=== PATIENT | female | born 1965 | race Caucasian/White ===

== ENCOUNTER 2016-07-15 02:27 | Emergency (ER) | payer MEDICARE ==
[~2016-07-15] VITALS: Ht 152.4 cm; Wt 40.8 kg
[2016-07-15 02:40] VITALS: BP 120/60
[2016-07-15] MEDS ORDERED: Norco 5mg/325mg tab ORAL ONE (02:45)
[2016-07-15] MEDS ORDERED: TdaP Vaccine 0.5ml Syr IM ONE (02:45)
[2016-07-15] MEDS ORDERED: NORCO 5-325 TA1 EACH ORAL (04:18)
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
[2016-07-15 04:20] VITALS: BP 118/63
[2016-07-15 04:30] VITALS: BP 118/63
--- NOTE | 2016-07-15 10:42 | Diagnostic Imaging Report ---
Indication: Head trauma Technique: Contiguous 5 mm thick transaxial imaging of the head obtained in a Siemens Sensation [address] scanner. Soft tissue and bone windows generated. Total Dose length Product (DLP): [address] Dose Index Volume (CTDIvol): 70.38 mGy Comparison: none Findings: The size and configuration of the cortical sulci, basal cisterns, and ventricles are within normal limits for age. There is no mass effect, midline shift, or edema identified. There is no evidence of acute hemorrhage or abnormal intra-axial or extra-axial fluid collections. In the posterior aspect of the left lateral ventricle, there is a prominence of fat consistent with a lipoma of the choroid plexus. There is a prominent hyperdense hematoma over the left frontal scalp. Impression: No mass effect, edema or acute bleed. 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 Left frontal scalp hematoma. [facility] has communicated the preliminary results to the Emergency Department. Their findings are largely concordant with this report. The CT scanner at [facility] is accredited by the [employer] and the scans are performed using protocols designed to limit radiation exposure to as low as reasonably achievable to attain images of sufficient resolution adequate for diagnostic evaluation.
== END 2016-07-15 04:30 | disposition home or self-care (01) ==
LOC: EMR 02:41 → EDBD 02:41 → EMR 04:30
DX: S01.01XA Laceration without foreign body of scalp, initial encounter (principal); S00.83XA Contusion of other part of head, initial encounter; W51.XXXA Accidental striking against or bumped into by another person, initial encounter; Y92.521 Bus station as the place of occurrence of the external cause; Z23 Encounter for immunization; D17.79 Benign lipomatous neoplasm of other sites
CPT/HCPCS: 70450; 90471; 90715